=== PATIENT | male | born 1970 | race African-American/Black ===

== ENCOUNTER 2021-06-13 18:58 | Emergency (ER) | payer BC ==
[~2021-06-13] VITALS: Ht 182.9 cm; Wt 90.9 kg
[2021-06-13 19:31] VITALS: TEMP 98.4
[2021-06-13 20:22] LABS: BASO # 0.1 (0.0-0.2); BASO % 0.2 % (0.0-2.0); EOS % 0.1 % (0-4.0); GRAN # 18.5 (1.4-6.5); GRAN % 88.6 % (42.2-75.2); HEMATOCRIT 44.3 % (42.0-52.0); HEMOGLOBIN 14.7 g/dl (13.5-18.0); LYMPH # 1.3 (1.2-3.4); LYMPH % 6.3 % (20.0-51.0); MEAN CELL VOLUME 96 fl (80.0-100.0); MEAN CORPUSCULAR HEMOGLOBIN 32 pg (27.0-31.0); MEAN CORPUSCULAR HGB CONC 33 g/dl (33.0-37.0); MEAN PLATELET VOLUME 9.9 fl (7.4-10.4); MONO # 0.9 (0.1-0.6); MONO % 4.3 % (1.7-9.3); PLATELET COUNT 247 K/mm3 (130-400); RED BLOOD COUNT 4.62 M/mm3 (4.20-5.60)
[2021-06-13 20:25] LABS: ALBUMIN 4.7 gm/dL (3.5-5.0); C-REACTIVE PROTEIN 2.9 mg/dL (0.0-0.9); CALCIUM 9.1 mg/dL (8.4-10.2); CREATININE, serum 1.11 (0.66-1.25); POTASSIUM 4.5 mmol/L (3.4-5.0); TOTAL PROTEIN 8.8 gm/dL (6.4-8.2)
[2021-06-13 20:44] LABS: COLLECTION METHOD CLEAN CATCH
[2021-06-13 20:56] LABS: PH 8 (5-8); SQUAMOUS EPITHELIAL None Seen /hpf; URINE APPEARANCE Clear; URINE BACTERIA None Seen /hpf; URINE BILIRUBIN Negative (NEGATIVE); URINE BLOOD Negative (NEGATIVE); URINE COLOR Yellow; URINE GLUCOSE Negative (NEGATIVE); URINE KETONE Negative (NEGATIVE); URINE LEUKOCYTE ESTERASE Negative (NEGATIVE); URINE NITRATE Negative (NEGATIVE); URINE PROTEIN(semi-quant) 1+ (NEGATIVE); URINE RBC 0-2 /hpf; URINE UROBILINOGEN Negative (NEGATIVE)
[2021-06-13 22:26] LABS: STREP SCREEN POSITIVE
[2021-06-13] MEDS ORDERED: MAGIC MOUTH PO ×2 (23:16)
[2021-06-13] MEDS ORDERED: CLEOCIN HCL300 MG PO ×2 (23:16)
[2021-06-14 00:17] VITALS: BP 114/74; PULSE 91
[2021-06-16] MEDS ORDERED: CLEOCIN HCL300 MG PO (20:10)
[2021-06-16] MEDS ORDERED: MAGIC MOUTH PO (20:10)
== END 2021-06-14 00:17 | disposition home or self-care (01) ==
LOC: COL.ER 18:58
PROVIDERS: Nurse Practitioner Primary Care
DX: J02.0 Streptococcal pharyngitis (principal); Z87.891 Personal history of nicotine dependence; Z20.822 Contact with and (suspected) exposure to COVID-19
CPT/HCPCS: J2270; J2405; J7030; Q9967